=== PATIENT | female | born 1935 | race Hispanic/Latino ===

== ENCOUNTER 2018-02-27 10:47 | Outpatient (CLI) | payer MEDICARE, OTHER | END 2018-02-27 10:48 | disposition home or self-care (01) | LOC: RAD 10:47 ==

== ENCOUNTER 2018-06-08 09:39 | Day surgery (SDC) | payer MEDICARE, OTHER ==
[2018-06-01 10:42] VITALS: BMI 30.2
[2018-06-08] MEDS ORDERED: Propofol 10 mg/ml Inj (20 ML) ONE (12:07)
[2018-06-08] MEDS ORDERED: Sodium Chloride 0.9% 1,000 ML IV SCH (12:45)
[2018-06-08 12:56] VITALS: PULSE 78
[2018-06-08 13:39] VITALS: BP 146/79; RESP 16; TEMP 97.6; O2SAT 99
== END 2018-06-08 13:55 | disposition home or self-care (01) ==
LOC: ENDO 09:39
PROVIDERS: ATTEND Internal Medicine Gastroenterology
DX: K25.7 Chronic gastric ulcer without hemorrhage or perforation (principal); K26.7 Chronic duodenal ulcer without hemorrhage or perforation; K21.9 Gastro-esophageal reflux disease without esophagitis; Z85.42 Personal history of malignant neoplasm of other parts of uterus
CPT/HCPCS: 43239; 88305; 88342; J2704; J7030; J7040